=== PATIENT | female | born 1950 | race Caucasian/White ===

== ENCOUNTER 2018-04-27 19:35 | Emergency (ER) | payer BC, MEDICARE ==
[~2018-04-27] VITALS: Ht 170.2 cm; Wt 59.0 kg
[2018-04-27] MEDS ORDERED: ONDANSETRON HCL/PF 4 MG/2 ML VIAL ONE ×2 (20:47→22:57)
[2018-04-27] MEDS ORDERED: LOPERAMIDE HCL (2 MG CAP) 2 MG CAPSULE PO ONE ×2 (21:00→21:10)
[2018-04-27] MEDS ORDERED: IV NS 0.9% 1,000 ML BAG IV ONE ×2 (21:00→22:00)
[2018-04-27] MEDS ORDERED: ONDANSETRON HCL/PF 4 MG/2 ML VIAL IVP ONE (21:00)
[2018-04-27 21:05] LABS: BASOPHILS % (AUTO) 0.2 % (0.0-2.0); HEMATOCRIT 42 % (33-45); HEMOGLOBIN 14.2 g/dL (11.5-14.8); LYMPHOCYTES # (AUTO) 0.3 /CMM (0.8-4.8); LYMPHOCYTES % (AUTO) 12.9 % (20.0-44.0); MEAN CORPUSCULAR HGB CONC 34 g/dl (31.0-36.0); MEAN CORPUSCULAR VOLUME 96 fL (82-100); MONOCYTES # (AUTO) 0.3 /CMM (0.1-1.30); MONOCYTES % (AUTO) 9.9 % (2.0-12.0); NEUTROPHILS # (AUTO) 2.1 /CMM (1.8-8.9); PLATELET COUNT (AUTO) 184 /CMM (150-450); RED BLOOD CELL COUNT(AUTO) 4.44 MIL/uL (4.0-5.2); WHITE BLOOD COUNT (AUTO) 2.7 K/uL (4.3-11.0)
[2018-04-27 21:22] LABS: BILIRUBIN,DIRECT 0.1 mg/dL (0.0-0.2); BILIRUBIN,TOTAL 0.3 mg/dL (0.2-1.0); CALCIUM, SERUM 7.7 mg/dL (8.5-10.1); CREATININE 1.1 mg/dL (0.6-1.3); POTASSIUM 3.4 mmol/L (3.5-5.1); TOTAL PROTEIN, SERUM 6.5 g/dL (6.4-8.2)
--- NOTE | 2018-04-27 21:57 | NUR ---
CUP PROVIDED TO PT FOR URINE SPECIMEN. PT AMBULATED WITH STEADY GAIT NOTED TO RESTROOM.
[2018-04-27] MEDS ORDERED: POTASSIUM CHLORIDE 20 MEQ TAB.PRT.SR PO ONE ×2 (22:00→22:14)
--- NOTE | 2018-04-27 22:15 | NUR ---
URINE SAMPLE COLLECTED AND CALLED LAB FOR EXPORT SALES MANAGER
[2018-04-27 22:49] LABS: APPEARANCE,URINE CLEAR (CLEAR); BILIRUBIN,URINE NEGATIVE (NEGATIVE); BLOOD, URINE NEGATIVE Ery/uL (NEGATIVE); COLOR,URINE YELLOW (YELLOW); KETONES,URINE NEGATIVE (NEGATIVE); LEUKOCYTE ESTERASE ,URINE NEGATIVE (NEGATIVE); NITRITE, URINE NEGATIVE (NEGATIVE); PROTEIN,URINE NEGATIVE (NEGATIVE); UGLUCOSE NEGATIVE (NEGATIVE); UROBILINOGEN,URINE 0.2 EU/dL (0.2)
[2018-04-27] MEDS ORDERED: ONDANSETRON HCL/PF 4 MG/2 ML VIAL IV ONE (23:00)
[2018-04-27 23:48] VITALS: BP 90/62
== END 2018-04-27 23:49 | disposition home or self-care (01) ==
LOC: ER 19:40
DX: R11.2 Nausea with vomiting, unspecified (principal); R19.7 Diarrhea, unspecified; E86.0 Dehydration; E87.6 Hypokalemia; D72.819 Decreased white blood cell count, unspecified; E78.00 Pure hypercholesterolemia, unspecified; E03.9 Hypothyroidism, unspecified; F10.10 Alcohol abuse, uncomplicated; F17.200 Nicotine dependence, unspecified, uncomplicated; Y90.9 Presence of alcohol in blood, level not specified; Z85.828 Personal history of other malignant neoplasm of skin; Z88.6 Allergy status to analgesic agent; Z88.1 Allergy status to other antibiotic agents; Z60.2 Problems related to living alone
CPT/HCPCS: 36415; 80048-TC; 80076-TC; 81000-TC; 83690-TC; 85025-TC; J2405; J7030

== ENCOUNTER 2019-06-19 15:59 | Emergency (ER) | payer BC ==
[~2019-06-19] VITALS: Ht 170.2 cm; Wt 65.8 kg
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
--- NOTE | 2019-06-19 16:53 | NUR ---
PT TO RADIOLOGY FOR HEAD AND FACIAL CT SCAN VIA [facility].
--- NOTE | 2019-06-19 17:55 | NUR ---
Patient discharged to home in stable condition. Written and verbal after care instructions given. Patient verbalizes understanding of instruction.
[2019-06-19 18:06] VITALS: BP 136/88
== END 2019-06-19 18:06 | disposition home or self-care (01) ==
LOC: ER 16:01
DX: S05.12XA Contusion of eyeball and orbital tissues, left eye, initial encounter (principal); S09.8XXA Other specified injuries of head, initial encounter; R51 Headache; Z85.828 Personal history of other malignant neoplasm of skin; Z88.6 Allergy status to analgesic agent; Z88.1 Allergy status to other antibiotic agents; Z60.2 Problems related to living alone; W18.39XA Other fall on same level, initial encounter; Y93.89 Activity, other specified; Y92.89 Other specified places as the place of occurrence of the external cause; Y99.8 Other external cause status
CPT/HCPCS: 70450-TC; 70486-TC